=== PATIENT | female | born 1995 | race Caucasian/White ===

== ENCOUNTER 2017-09-30 20:48 | Emergency (ER) | payer OTHER, BC ==
[2017-09-30 21:00] VITALS: RESP 18
[2017-09-30] MEDS ORDERED: CYCLOBENZAPRINE 10MG PREPACK#3 BTL TAKEHOME ONE (22:08)
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
[2017-09-30 22:21] VITALS: BP 120/72; PULSE 86; TEMP 98.4; O2SAT 98
== END 2017-09-30 22:22 | disposition home or self-care (01) ==
DX: S09.90XA Unspecified injury of head, initial encounter (principal); S16.1XXA Strain of muscle, fascia and tendon at neck level, initial encounter; V49.50XA Passenger injured in collision with unspecified motor vehicles in traffic accident, initial encounter; Y92.410 Unspecified street and highway as the place of occurrence of the external cause